=== PATIENT | female | born 1980 | race Two or more races ===

== ENCOUNTER 2021-12-10 05:28 | Emergency (ER) | payer OTHER ==
[~2021-12-10] VITALS: Ht 167.6 cm; Wt 110.7 kg
== END 2021-12-10 12:57 | disposition home or self-care (01) ==
LOC: ER 05:28
DX: O03.4 Incomplete spontaneous abortion without complication (principal); Z3A.12 12 weeks gestation of pregnancy; Z88.6 Allergy status to analgesic agent

== ENCOUNTER 2021-12-11 19:58 | Emergency (ER) | payer OTHER ==
[~2021-12-11] VITALS: Ht 157.5 cm; Wt 97.5 kg
== END 2021-12-11 22:16 | disposition home or self-care (01) ==
LOC: ER 19:58
DX: O03.9 Complete or unspecified spontaneous abortion without complication (principal); Z88.6 Allergy status to analgesic agent